=== PATIENT | female | born 1980 | race Caucasian/White ===

== ENCOUNTER 2023-03-03 12:57 | Outpatient (CLI) | payer OTHER, SELFPAY ==
--- NOTE | 2023-03-03 13:20 | CRLHL7_ITS ---
For Patients: As a result of the Century Cures Act, medical imaging exams and procedure reports are released immediately into your electronic medical record. You may view this report before your referring provider. If you have questions, please contact your health care provider. BILATERAL SCREENING MAMMOGRAM WITH COMPUTER-AIDED DETECTION AND TOMOSYNTHESIS TECHNIQUE: CC and MLO views were obtained. These mammographic images have been obtained using full-field digital technique. These mammographic images were interpreted with the benefit of computer-aided detection. Breast tomosynthesis was used in this interpretation. COMPARISON FILM: 01/07/22, 12/02/20, 09/02/19. FINDINGS: The breasts are heterogeneously dense, which may obscure small masses. IMPRESSION: There is no radiographic evidence for malignancy. ASSESSMENT: BI-RADS Category 1: Negative RECOMMENDATION: Routine screening mammogram in 1 year. A lay language report of this examination will be provided to the patient. ZION DOBSON M.D. Diagnostic Radiologist [email or web address] Transcribed: 03/06/2023, 1:[address]/Dictated by: Zion Dobson MD @ 03/06/2023 8:27:00 AM (Electronically Signed)
== END 2023-03-03 12:58 | disposition home or self-care (01) ==
PROVIDERS: Visit Provider Student in an Organized Health Care Education/Training Program
DX: Z12.31 Encounter for screening mammogram for malignant neoplasm of breast (principal); R92.2 Inconclusive mammogram
CPT/HCPCS: 77063; 77067

== ENCOUNTER 2024-02-04 13:49 | Emergency (ER) | payer OTHER, SELFPAY ==
[2024-02-04 13:56] VITALS: BP 145/78; PULSE 78; RESP 18; TEMP 37.2; O2SAT 95; BMI 25.8
--- NOTE | 2024-02-04 14:00 | ED_ITS ---
HPI - General Adult General Time Seen by Provider: 14:00 Date Seen: 02/04/24 Chief complaint: Head Injury/Pain Stated complaint: Fell off horse-hit head with helmet Time Seen by Provider: 02/04/24 13:56 Source: patient, RN notes reviewed and old records reviewed Mode of arrival: ambulatory Limitations: no limitations History of Present Illness HPI narrative: 43-year-old female who presents today after falling off a horse. Patient says she slid off a horse fell and hit her head. Denies loss of consciousness but says she does not remember walking back to the barn, remembers everything else. No nausea or vomiting. No vision changes or photophobia. Denies numbness tingling in the arms or legs. Says that she has some achiness in her back and neck but it does not hurt to move. No chest pain or breathing difficulty. She is unsure for helmet was damaged or not. Related Data Home Medications ?Medication ?Instructions ?Recorded ?Confirmed sertraline 25 mg tablet 25 mg PO DAILY 02/04/24 02/04/24 Allergies Allergy/AdvReac Type Severity Reaction Status Date / Time cefazolin [From [facility]] Allergy Intermediate Hives Verified 02/04/24 13:55 Latex, Natural Rubber Allergy Intermediate Rash Verified 02/04/24 13:55 PFSH PFSH Social History Smoking Status: Never smoker How often do you have a drink containing alcohol: 2-3 times a week AUDIT-C Alcohol total score: 3 Non-prescribed substance use: denies use Exam Narrative: Exam Narrative: General: Well-developed and well-nourished, no acute distress Head: Atraumatic and normocephalic Eyes: Pupils are equal reactive, extraocular motions intact, conjunctiva clear ENT: External nose and ears are normal, posterior pharynx without erythema or exudate Neck: No midline cervical tenderness, full spontaneous range of motion the neck, trachea midline, no adenopathy Heart: Regular rate and rhythm no murmurs or thrills Lungs: Clear to auscultation bilaterally without wheezes or crackles Abdomen: Soft, nontender, nondistended with active bowel sounds Musculoskeletal: Congenital malformation right arm Neurologic: Awake, alert, and oriented x3, no gross focal neurologic deficits, cranial nerves intact as tested Psych: Mood and affect are appropriate Skin: No rashes Const: Vital Signs, click to edit/add: Vital Signs - 24 hr 02/04/24 13:56 Temperature 98.9 F Pulse Rate [Pulse Oximeter] 78 Respiratory Rate 18 Blood Pressure [Le ft Upper Arm] 145/78 H Pulse Oximetry 95 Oxygen Delivery Az thod Room Air Course Course ED Course: Patient seen and examined, presents with head injury. Patient fell off a horse, was wearing a helmet, hit her head, has amnesia for a couple of minutes after the accident. Has no complaints now. Denies neck pain, chest pain, numbness or tingling the arms or legs, nausea, or headache. Does have some general achiness in her back. On exam, no external signs of head injury, no midline cervical tenderness and full spontaneous range of motion the neck. Consider cervical spine CT but not indicated by nexus criteria. CT scan of the head is ordered. Reevaluation(s) Time of Reevaluation #1: 14:44 Reevaluation #1: CT scan of the head independently interpreted by me is negative for acute findings. Patient is stable for discharge. Vital Signs Vital signs: Initial Vital Signs Temperature 98.9 F 02/04/24 13:56 Temperature Source Temporal Artery Scan 02/04/24 13:56 Pulse Rate 78 02/04/24 13:56 Respiratory Rate 18 02/04/24 13:56 Blood Pressure 145/78 H 02/04/24 13:56 Blood Pressure Mean 100 02/04/24 13:56 Pulse Oximetry 95 02/04/24 13:56 Oxygen Delivery Method Room Air 02/04/24 13:56 Vital Signs Temperature 98.9 F 02/04/24 13:56 Pulse Rate 78 02/04/24 13:56 Respiratory Rate 18 02/04/24 13:56 Blood Pressure 145/78 H 02/04/24 13:56 Pulse Oximetry 95 02/04/24 13:56 Oxygen Delivery Method Room Air 02/04/24 13:56 Temperature 98.9 F 02/04/24 13:56 Pulse Rate 78 02/04/24 13:56 Respiratory Rate 18 02/04/24 13:56 Blood Pressure 145/78 H 02/04/24 13:56 Pulse Oximetry 95 02/04/24 13:56 Oxygen Delivery Method Room Air 02/04/24 13:56 Medications Administered Medications: Discontinued Medications Generic Name Dose Route Start Last Admin Trade Name Freq PRN Reason Stop Dose Admin Acetaminophen 1,000 mg 02/04/24 14:06 02/04/24 14:12 Acetaminophen 500 Mg Tablet PO 02/04/24 14:07 1,000 mg ONCE ONE Administration Discharge Plan Discharge Clinical Impression: Concussion without loss of consciousness Patient Disposition: Home, Self-Care Condition: Stable Instructions: Concussion (ED) Additional Instructions: Tylenol and ibuprofen as needed for pain Lots of fluids and rest in the next 24 hours. Avoid alcohol and caffeine. Avoid strenuous activities, normal daytime in work activities are fine Activity Level: Activity as Tolerated Discharge Diet: Regular Prescriptions: No Action sertraline 25 mg tablet 25 mg PO DAILY Follow Up/Referrals: Provider,Not a Local [Primary Care Provider] - Stand Alone Forms: [employer] Info Instructions
--- NOTE | 2024-02-04 14:06 | CRLHL7_ITS ---
For Patients: As a result of the Century Cures Act, medical imaging exams and procedure reports are released immediately into your electronic medical record. You may view this report before your referring provider. If you have questions, please contact your health care provider. INDICATION: Fall. COMPARISON: None available. TECHNIQUE: CT of the head without intravenous contrast. Please note that all CT scans at this facility use dose modulation, iterative reconstruction, and/or weight-based dosing when appropriate to reduce radiation dose to as low as reasonably achievable. FINDINGS: The brain is normal in attenuation with preserved mercado-white matter differentiation. No hydrocephalus. No mass or mass effect. No intracranial hemorrhage. Intact skull base and cranial vault. Visualized orbits are without significant incidental findings. Visualized paranasal sinuses and mastoid air cells are clear. Rightward deviated nasal septum. Right bony nasal septal spur. IMPRESSION: No acute findings. Please note that all CT scans at this facility use dose modulation, iterative reconstruction, and/or weight-based dosing when appropriate to reduce radiation dose to as low as reasonably achievable. Dictated by Lane Card MD @ 02/04/2024 2:53:00 PM (Electronically Signed)
[2024-02-04] MEDS: ACETAMINOPHEN 500 MG TABLET 1000 MG PO (14:12)
--- OUTSIDE RECORDS SUMMARY | 2024-02-04 14:40 | XMS_ITS | Data Portability ---
Author Organization CORY Roldan STORE CLERK CASHIER, [id number] Address [address] [place] [address] Care Team Providers Care Technology Professional Name Role Phone [facility] Primary Care Provid er Assessment Encounter Date Assessment Date Assessment LastModified by Organization Details LastModified Time 10/03/2023 10/03/2023 This service was provided using telemedicine including synchronous audio and/or video approved technology. The patient verbally Consents to telemedicine services, virtual check-ins and evisits. The patient confirms she is at home or private location Telemedicine consultation via Synchronous Audio and Video Call. I spent a total of 10 minutes providing care for this patient including: preparing to see the patient, obtaining a medical history, completing a medically appropriate physical exam, completing documentation of visit information and plans in the EMR, counseling the patient and/or caregiver regarding her diagnosis, treatment options and follow up plans, as well as any necessary communication of subsequent test results to the patient. Assessment and Plan for this visit include the following: [email or web address] Not available 10/03/2023 16:12:02 Plan of Treatment Reminders Order Date Submit Date Provider Last Modified By Organization Details Last Modified Time Details Appointments None recorded. Lab hemoglobin (Hb), fingerstick , blood 2020 021 [email or web address] [id number] [place] , [address] [facility], [address], [place], [address], 10:54:42 unlisted lab - HPV high risk DNA with 16/18 genotyping 2020 021 [facility], [address], [place], [address], 16:32:21 pap, LB 2020 021 [facility], [address], [place], [address], 16:32:22 lipid panel, serum 2021 022 [place] [facility], [address] [place], [address], 10:10:27 unlisted lab - glucose, fasting 2021 022 [place] [facility], [address] [place], [address], 10:10:27 lipid panel, serum 2022 023 [facility], [address] [facility], [address], [place], [address], 3 19:25:47 glucose, blood 2022 023 [facility], [address] [facility], [address], [place], [address], 3 19:25:47 Referral None recorded. Procedures None recorded. Surgeries None recorded. Imaging None recorded. Medication Orders sertraline 50 mg tablet 2020 021 [facility], [address] [place] [address], [address], 11:13:20 sertraline 50 mg tablet 2021 022 [facility]57, [address] [place], [address], 2 13:13:46 sertraline 25 mg tablet 2023 024 [facility]92, [address] [place] [address], [address], 16:39:15 Patient TargetsNo targets recorded. Patient Instructions Encounter Date Encounter Id Patient Instructions Last Modified By Organization Details Last Modified Time 11/23/2020 [id number] - Encouraged breast self-awareness and monthly breast exams. - Recommend mammogram annually. - Encouraged regular exercise. - Calcium, vitamin D, and weight bearing exercise for bone health. - Recommend colonoscopy starting at age 45-50. 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 - Discussed common perimenopausal changes - Counseled on alternative types of control - Pt will return to clinic for fasting labs- lipids, glucose - Return to clinic in 1 year for annual exam [email or web address] Not available 11/23/2020 13:57:50 12/03/2021 [id number] - Encouraged breast self-awareness and recommend yearly mammogram. - Encouraged regular exercise. - Calcium and vitamin D intake discussed. - Discussed appropriate breast cancer screening and mammogram intervals. - Counseled on perimenopause signs/symptoms. - Counseled about the use of HRT; risks, benefits and alternatives of hormone replacement therapy were discussed today. - Discussed mood symptoms. - Counseling on alternative methods of control provided including back up control and condoms. Not available 12/03/2021 13:16:00 12/30/2022 [id number] - Encouraged breast self-awareness and recommend yearly mammogram. - Encouraged regular exercise. - Calcium and vitamin D intake discussed. - Patient will return to clinic for fasting labs. - Discussed appropriate breast cancer screening and mammogram intervals. - Counseled on perimenopause signs/symptoms. - Encouraged weight loss-action plan. - Discussed mood symptoms Not available 12/30/2022 11:41:44 Reason for Referral None Reported. Results Created Date Observation Date Name Description Value Unit Range Abnormal Flag LastModifiedBy Organization Detail LastModifiedTime 11/23/2020 hemog lobin (Hb), finge rstic k, blood fingerstick hemoglobin 12.5 g/dL 12.0-1 5.0 Not Available [id number] [facility] [address] [facility] [address], [place], [address], 11/23/2020 10:52:19 11/24/19 21 11/23/2020 HPV DNA, high- risk HPV high risk type 16 Negati ve for HPV type 16. negati ve for HPV type 16. Not Available [facility] [address] [place], [address], 11/27/2020 16:32:21 11/24/19 21 11/23/2020 HPV DNA, high- risk HPV high risk type 18 Negati ve for HPV type 18. negati ve for HPV type 18. Not Available [facility] [address] [place], [address], 11/27/2020 16:32:21 11/24/19 21 11/23/2020 HPV DNA, high- risk HPV other high risk types Negati ve for other high risk HPV types. negati ve for other high risk HPV types. Not Available [facility] [address] [place], [address], 11/27/2020 16:32:21 11/24/19 21 11/23/2020 pap, LB case report See note Not Available [facility] [address] [place], [address], 11/27/2020 16:32:22 12/04/19 22 12/04/2021 LIPID PANEL W/ CHOL/ HDL RATIO cholesterol, total 216 mg/dL 100-19 9 above high normal Not Available [facility] ([facility]) [address] [facility], [place], [address], 12/04/2021 10:10:27 12/04/19 22 12/04/2021 LIPID PANEL W/ CHOL/ HDL RATIO triglyceride s 57 mg/dL 0-149 Not Available [facility] ([facility]) [address] [facility], [place], [address], 12/04/2021 10:10:27 12/04/19 22 12/04/2021 LIPID PANEL W/ CHOL/ HDL RATIO HDL cholesterol 68 mg/dL >39 Not Available [facility] ([facility]) [address] [place], [address], 12/04/2021 10:10:27 12/04/19 22 12/04/2021 LIPID PANEL W/ CHOL/ HDL RATIO VLDL cholesterol beryl 10 mg/dL 5-40 Not Available [facility] ([facility]) [address] [place], [address], 12/04/2021 10:10:27 12/04/19 22 12/04/2021 LIPID PANEL W/ CHOL/ HDL RATIO LDL chol calc ([facility]) 138 mg/dL 0-99 above high normal Not Available [facility] (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) [address] [place], [address], 12/04/2021 10:10:27 12/04/19 22 12/04/2021 LIPID PANEL W/ CHOL/ HDL RATIO T. chol/HDL ratio 3.2 ratio 0.0-4. 4 Not Available [facility] ([facility]) [address] [place], [address], 12/04/2021 10:10:27 12/04/19 22 12/04/2021 GLUCO SE, FASTI NG glucose, fasting 169 mg/dL 65-99 above high normal Not Available [facility] ([facility]) [address] [place], [address], 12/04/2021 10:10:27 12/22/19 22 12/22/2021 HEMOG LOBIN A1C hemoglobin A1C 5.6 % 4.8-5. 6 Not Available [facility] ([facility]) [address] [facility], [place], [address], 12/22/2021 08:16:04 12/31/19 23 12/30/2022 LIPID PANEL cholesterol 180 mg/dL <200 Not Available [address], [place], [address], 12/30/2022 19:25:47 12/31/19 23 12/30/2022 LIPID PANEL triglyceride s 45 mg/dL <150 Not Available [address], [place], [address], 12/30/2022 19:25:47 12/31/19 23 12/30/2022 LIPID PANEL direct measure HDL 68 mg/dL >=50 Not Available [address], [place], [address], 12/30/2022 19:25:47 12/31/19 23 12/30/2022 LIPID PANEL LDL cholesterol calculated 103 mg/dL <=100 high Not Available [address], [place], [address], 12/30/2022 19:25:47 12/31/19 23 12/30/2022 LIPID PANEL non HDL cholesterol 112 mg/dL <130 Not Available [address], [place], [address], 12/30/2022 19:25:47 12/31/19 23 12/30/2022 GLUCO SE SERUM OR PLASM A glucose 83 mg/dL 70-99 Not Available [address], [place], [address], 12/30/2022 19:25:47 12/31/19 23 12/30/2022 GLUCO SE SERUM OR PLASM A patient fasting > 8hrs? Yes Not Available [address], [place], [address], 12/30/2022 19:25:47 03/06/20 23 03/03/2023 MAMMO , scree yves, tomos ynthe sis, bilat eral No observ ation record ed. [email or web address] Rosmery Health And Safety Manager [facility] [address], [place], [address], 03/06/2023 16:36:20 Result Notes None recorded. Problems Name Status Onset Date Resolution Date Notes Provider Name and Address Organization Details Recorded Time Anxiety [place] [address] [facility],[address], [place], [address], [facility] STORE CLERK CASHIER 11/16/2020 16:56:57 Problem Notes None recorded. Procedures Surgical History Date Name Laterality Status Provider Name and Address Organization Details Recorded Time 023 Date of Last Mammogram completed Dale sales [place] Mikel Phoenix STORE CLERK CASHIER 03/06/2023 16:36:31 021 Date of Last Pap Smear completed Deshaun sales [facility] Premhayder STORE CLERK CASHIER 11/27/2020 17:16:55 operative procedure on knee completed Not Available [facility] 03/16/2020 01:04:59 excision of basal cell carcinoma completed Not Available [facility] 03/16/2020 01:04:59 tooth extraction completed Not Available [facility] 03/16/2020 01:04:59 operative procedure on [place] [address] [facility],[address], [place], [address], [facility] Premier STORE CLERK CASHIER 11/16/2020 17:00:54 colposcopy of cervix completed Not Available [facility] 03/16/2020 01:05:00 arthroscopically aided anterior cruciate ligament reconstruction completed Not Available [facility] 03/16/2020 01:05:00 Imaging Results Imaging Date Name Status LastModified by Organiz ation Details LastModified Time 03/03/2023 MAMMO, screening, tomosynthesis, bilateral completed [email or web address] Alekseycm Health And Safety Manager [facility] [address] [facility] [address], [place], [address], 03/06/2023 16:36:20 Procedure Notes None recorded. Medical Equipment None Reported. Allergies Allergen ID Allergen Name Allergen Category Reaction Reaction Severity Criticality Documentation Date Start Date Code Code System Note Provider Name and Address Organization Details Recorded Time 983116 Latex Exam Gloves medicatio n Not available Not available Not available 03/13/2020 *Note : hives Not Available [facility] 0 16:56:20 598151 cefazolin sodium medicatio n Not available Not available Not available 03/13/202039045 1 RxNorm *Onse t: 7 *Note : 06/14 - hives Not Available [facility] 0 16:56:20 Medications Name Sig Start Date Stop Date Status Note LastModified by Organization Details LastModified Time tretinoin 0.025 % topical cream Apply a pea size amount to face in the evening for brown spots . Apply moisturiz er on top. Start slowly. active Not Available Not Available No t Available sertraline 25 mg tablet TAKE ONE TABLET BY MOUTH ONE TIME DAILY* active Not Available Not Available No t Available sertraline 50 mg tablet Take 0.5 tablets (25 mg) by mouth daily 12/30 completed Not Available Not Available Not Available ID NOW COVID-19 Test Kit TEST FOR COVID-19 PER PROTOCOL 12/03 completed Not Available Not Available Not Available Vitals Date Recorded Body height Body mass index (BMI) Body weight Systolic blood pressure Diastolic blood pressure Provider Name and Address Organization Details Last Updated DateTime 12/03/2021 167.64 cm 25.3 kg/m2 72528.57 g 118 mm[Hg] 74 mm[Hg] Anamika Roldan STORE CLERK CASHIER 2 10:39:56 Date Recorded Body height Body mass index (BMI) Body weight Systolic blood pressure Diastolic blood pressure Provider Name and Address Organization Details Last Updated DateTime 12/30/2022 167.64 cm 25.5 kg/m2 76374.31 g 118 mm[Hg] 76 mm[Hg] Anamika Roldan STORE CLERK CASHIER 3 10:34:33 Date Recorded Body height Body mass index (BMI) Body weight Systolic blood pressure Diastolic blood pressure Provider Name and Address Organization Details Last Updated DateTime 11/23/2020 167.64 cm 26.6 kg/m2 27628.3 g 116 mm[Hg] 72 mm[Hg] Eugenio Navarro (TERMED) CORY Roldan STORE CLERK CASHIER 10:52:16 Social History Question Answer Notes LastModified by WhatsOpen Details LastModified Time Tobacco Smoking Status Never Smoker CORY Soria STORE CLERK CASHIER 12/03/2021 08:01:51 Do You Have An Advance Directive? No Information not available 12/30/2022 What Is Your Level Of Alcohol Consumption? Occasional 1-2dr/week Information not available 12/03/2021 What Is Your Level Of Caffeine Consumption? Moderate 1c/day Information not available 12/30/2022 Which Illicit Or Recreational Drugs Have You Used? 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 Information not available 12/03/2021 Do You Use Any Illicit Or Recreational Drugs? No Information not available 12/03/2021 Sex: Unknown Functional Status Question Answer Note LastModified by Whats[employer] Details LastModified Time What is your exercise level? Moderate Moderate Amount of Exercise (1-3 times weekly) *Note: walk Information not available 03/16/2020 Mental Status None recorded. Family History Relationship Description Onset Age of this Age Resolved Age Notes Father Carcinoma in situ of skin Skin Carcinoma I n Situ: basil cell carcinoma Paternal Grandfather Carcinoma in situ of skin Skin Carcinoma I n Situ: basil cell carcinoma Paternal Grandfather Family history of stroke 70 Stroke Maternal Grandfather Disorder of cardiovascular system 40 Cardiovascular Disease Maternal Grandfather Congestive heart failure 93 Maternal Grandmother Family history of mental disorder Depression Maternal Aunt Malignant tumor of breast 55 Notes:03/16/2020: *Relative: Aunt *Problem: Cancer Breast Medical History Condition Response Psych- Anxiety Disorder Y Ortho-Other Y Ortho-Fractures Y ENT-Other Y Dermatology-Other Y Gynecological History Statement/Question Response History of Abnormal PAP Y History of Recurrent Ovarian Cysts N HPV Test Negative Date of Last Mammogram 03/03/2023 Date of LMP 12/28/2022 History of Cervical Dysplasia N N Date of Last Diabetes Screening 12/22/19 22 5 Sexually Active Y 26 History of Sexually Transmitted Infectio n N Y Current Control Method None Urinary Incontinence Symptoms N Date of Last Pap Smear 11/23/2020 Date of Last Cholesterol Screening 12/03 Obstetrics History GPAL:G 1 P 1 0 0 1 Type Value Multiple Births 0 Full Term 1 Induced 0 Spontaneous 0 Premature 0 Living 1 Ectopics 0 Total 1 Immunizations Vaccine Type Date Status Provider Name and Address Organization Details Recorded Time Tdap 03/21/2012 completed Not Available [facility] 01:06:35 Influenza, split virus, trivalent, preservative 08/16/2011 completed Not Available [facility] 03/16/2020 01:06:35 Influenza, split virus, trivalent, preservative 2013 completed Not Available [facility] 03/16/2020 01:06:36 Influenza, split virus, trivalent, preservative 05/30/2014 completed Not Available [facility] 03/16/2020 01:06:36 Past Encounters Encounter ID Performer Location Encounter Start Date Encounter Closed Date Diagnosis/Indication Diagnosis SNOMED-CT Code [id number] COLIN MCINTYRE MD [id number] [facility] [address] [facility], [address] [place] [address] 11/23/2020 10:42:32 11/23/2020 11:28:28 Gynecologic examination 83626984 Anxiety 20617956 Contracept ion care management 736883175 [id number] ANAND JONES MD [id number] [facility] [address] [facility], [address] [place] [address] 12/03/2021 10:23:11 12/03/2021 13:42:50 Hyperlipidemia screening 683644057 Diabetes m ellitus screening 653113475 Gynecologi c examination 40363463 Anxiety 16725767 [id number] ANAND JONES MD [id number] [facility] [address] [facility], [address] [place] [address] 12/30/2022 10:22:29 12/30/2022 11:53:08 Gynecologic examination 20432729 Hyperlipid emia screening 502456342 Diabetes m ellitus screening 924643448 [id number] JEANNETTE CORDERO, CNM [id number] [facility] [address],[facility] [address] [place] [address] 10/03/2023 15:51:51 10/03/2023 16:38:23 Generalized anxiety disorder 80599455 Health Concerns Section Related Observation LastModified by Organization Detai ls LastModified Time None Recorded Concern Status LastModified by Organization Details LastModified Time None Recorded Advance Directives Directive N: Payers Encounter Date Sequence Insurance Name Policy Number Policy Britton Covered Member ID Britton Member ID Guarantor Name 11/23/2020 1 [place] [id number] Sade Zhou [id number] Sade Zhou 12/03/2021 1 [place] [id number] Sade Zhou [id number] Sade Zhou 12/30/2022 1 [employer]ride [id number] Sade Zhou [id number] Sade Zhou 10/03/2023 1 [employer] - OPEN ACCESS PLUS [id number] Sade Zhou [id number] Sade Zhou Notes Date Note Type Note Provider Name and Address Organization Details Recorded Time 11/23/2020 text/html HPI Notes: Annua l Premenopausal ([facility]) Reported by patient. Patient Relationship To Practice: former patient returning Current Medical History: active medical problems stable; no recent surgeries or hospitalizations Relevant Family History: no family history of breast cancer; no family history of ovarian cancer Menstrual History: Frequency of Menses: monthly; Quantity of Flow: moderate Contraceptive Method: nothing; unsatisfied Sexually Active: Yes: same partner Mammogram: due Pap Smear +/- HPV Cotesting: due Thyroid/Lipid Screening: due Colonoscopy: not applicable Last here 06/2016. Was seeing Dr. Lorenzo who recently retired. Son now 8 yo. 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 Has not yet chosen to get the Covid vaccine. Encouraged to. Menses regular. Not using any BC. Still hoping for to get vasectomy. Continues on sertraline for anxiety and PMS. Forgets to take some days or for up to a week. Does feel better on it and [place] [address] [facility],[address], [place], [address], [facility] [place] [facility] STORE CLERK CASHIER 11/23/2020 13:58:08 12/03/2021 text/html HPI Notes: Annua l Premenopausal (Premier) Reported by patient. Patient Relationship To Practice: established patient Current Medical History: active medical problems stable; no recent surgeries or hospitalizations Relevant Family History: no family history of breast cancer; no family history of ovarian cancer Menstrual History: Frequency of Menses: monthly; Quantity of Flow: moderate Contraceptive Method: nothing; unsatisfied Sexually Active: Yes: same partner Health/Prevention: Exercise: yes; Tobacco Use: no; Safe at home: yes Mammogram: due Pap Smear +/- HPV Cotesting: due Thyroid/Lipid Screening: due Colonoscopy: not applicable Notes: Son 9 yo - doing well. 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 Menses regular. Not using any BC. Still hoping for to get vasectomy. Continues on sertraline for anxiety and PMS. Forgets to take some days or for up to a week. Does feel better on it and [place] [address] [employer] [facility],[address], [place], [address], [place] [facility] STORE CL[facility] 12/03/2021 13:16:19 12/30/2022 text/html HPI Notes: Annua l Premenopausal (Premier) Reported by patient. Patient Relationship To Practice: established patient Current Medical History: active medical problems stable; no recent surgeries or hospitalizations Relevant Family History: no family history of breast cancer; no family history of ovarian cancer Menstrual History: Frequency of Menses: monthly; Quantity of Flow: moderate Contraceptive Method: nothing Sexually Active: Yes: same partner Health/Prevention: Exercise: yes; Tobacco Use: no; Safe at home: yes Mammogram: due Pap Smear +/- HPV Cotesting: up-to-date Thyroid/Lipid Screening: up-to-date Colonoscopy: not applicable Patient has: Primary Care Physician: yes Notes: Son 10 yo - doing well. 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 Not using any BC. Still hoping for to get vasectomy. Has been slowly weaning off of sertraline, Forgets to take some days or for up to a week. [place] [address], [place], [address], [place] [facility] STORE CL[facility] 12/30/2022 11:42:23 10/03/2023 text/html HPI Notes: Sade presents today for a telehealth visit with request for refill on Zoloft. She reports she tried to come off of this medication last year, but has noticed increased anxiety without it. She has since restarted it, taking 25 mg. She desires a refill to be sent for her. Overall mood is stable, and feels Zoloft helps to keep the anxiety well controlled. No current therapy. Denies any major life changes that contribute to mood symptoms/anxiety. Denies suicidal ideation. JEANNETTE CORDERO, STEVE [address] [employer] [facility],[address], [place], [address], [place] [facility] STORE CLERK CASH[facility] 10/03/2023 16:12:50 OBGyn Episode Ob Episode Information Episode Created Date Number of Fetuses Patient Bloodtype Patient rh Status Prepregnancy Weight lbs Domestic Partner Domestic Partner Phone Father Name Equipment Validation Specialist Status 11/17/19 21 1 CLOSED Fetus Data First Name Last Name Admitted to NICU Weight (g) Sex Living Outcome Pediatric Complications Fetus ID Race Codes Race Delivery Type 3118.44 5 M Full Term [id number] Vaginal Vacuum Assisted Maldonado Calculation Initial Maldonado Date Initial Exam Date Initial Exam Provider Initial Ultrasound Date Last Menstrual Period Date Ultra Sound Weeks Gestation 0 Eighteen To Twenty Week Maldonado Update Ultra Sound Date Fundal Height At Umbil Quickening Date Ultra Sound Latest Weeks Gestation Final Maldonado Confirmed By Final Maldonado Confirmed Date Final Maldonado Date Ultra Sound Latest Days Gestation 0 0 Menstrual History Last Menstrual Date Menses Monthly On Bcp Conception Prior Menses Frequency Hcg Plus Date Menarche Onset Age Delivery Information Delivery Date Delivery Type Labor Anesthesia Weeks Gestation Incision Type Labor Labor Length Hrs Delivered By Post Complications Tubal Sterilization Discharge Date Comments [address] Reyna Discharge Information Feeding Method Contraceptive Method Maternal HG B and HCT Levels
--- OUTSIDE RECORDS SUMMARY | 2024-02-04 14:40 | XMS_ITS | Clinical Summary ---
Author Organization [facility] Address [place], [place] [address] Care Team Providers Care Nylon Winder Name Role Phone Bree Zamora MD Primary Care Provider [phone] Allergies Active Allergy Reactions Criticality Noted Date Comments Cefazolin 01/21/2009 Latex 03/26/2012 Medications Medication Sig Dispensed Refills Start Date End Date Status ZOLOFT 50 MG TAB take 1 tablet (50 mg) by oral route once daily Active CLOMID 50 MG TAB take 2 tablets (100mg) by oral route days 5-9 of cycle Active ferrous sulfate, 45 mg elemental, 142 mg (45 mg iron) extended release tablet Take 142 mg by mouth once daily. 03/26/2012 Active docusate (COLACE) 100 mg capsule Take 100 mg by mouth 2 times daily if needed. 03/26/2012 Active DOCOSAHEXANOIC ACID ( DHA ORAL) Take 1 tablet by mouth daily. 03/26/2012 Active Active Problems Problem Noted Date Diagnosed Date Routine general medical exam ination at a health care facility 01/21/2009 Overview: Last pap 05/01/08 NIL Depression 01/21/2009 Infertility 01/21/2009 Overview: Clomid and Novarel Social History Tobacco Use Types Packs/Day Years Used Date Smoking Tobacco: Never Assessed Sex and Gender Information Value Date Recorded Sex Assigned at Not on file Gender Identity Not on file Sexual Orientation Not on file Obstetrics History Para Term AB IAB SAB Ectopic Multiple Livin g Live Births 0 0 0 0 0 0 0 0 0 0 Last Filed Vital Signs Vital Sign Reading Time Taken Comments Blood Pressure 110/70 03/26/2012 2:00 AM CDT Pulse 76 03/26/2012 2:00 AM CDT Temperature 36.3 ??C (97.4 ??F) 03/26/2012 2:00 AM CD T Respiratory Rate 20 03/26/2012 2:00 AM CDT Oxygen Saturation - - Inhaled Oxygen Concentration - - Weight - - Height - - Body Mass Index - - Plan of Treatment Health Maintenance Due Date Last Done Comments Tdap 1989 Depression screening for age 12+ 1990 HIV for age 15-65 1993 BMI (ht and wt on same day) for age 18+ 1996 Hepatitis C screening for ag e 18-79 1996 Tetanus booster 1998 Pap test for age 21-65 1999 COVID-19 vaccine series (2022- season) 2023 Colonoscopy through age 75 2023 Lipids for age 45-75 2023 Mammogram for age 45-75 2023 Influenza for age 9-49 04/07/2024 Pneumococcal series for age 6-64 Aged Out No longer eligible based on patient's age to complete this topic Care Teams Nylon Winder Relationship Specialty Start Date End Date Bree Zamora MD PCP - General 08/08/08
== END 2024-02-04 14:58 | disposition home or self-care (01) ==
PROVIDERS: Emergency Provider Family Medicine
DX: S06.0X0A Concussion without loss of consciousness, initial encounter (principal); V80.010A Animal-rider injured by fall from or being thrown from horse in noncollision accident, initial encounter
CPT/HCPCS: 70450; 99284; A9270

== ENCOUNTER 2024-06-18 15:39 | Outpatient (CLI) | payer OTHER, SELFPAY ==
--- OUTSIDE RECORDS SUMMARY | 2024-06-18 15:42 | XMS_ITS | Referral Summary ---
Author Organization [facility] Address [address] [place] [address] Care Team Providers Care Forgeman Helper Name Role Phone Jenny Monroy MD Primary Care Provider [phone] Jenny Monroy MD Unavailable [phone] Encounters Date Type Department Care Team Description 05/21/2024 Telephone [facility] [address] [address] Scan, Provider Forms (Medical records request to [facility]mer[facility] STATON. Request faxed/scan 05/21/24) 05/20/2024 Travel 05/20/2024 8:00 AM CDT Office Visit [facility] [address] [address] Jenny Monroy MD Encounter for routine history and physical exam in female patient (Primary Dx); ALONSO (generalized anxiety disorder); Encounter for screening mammogram for breast cancer; Screening for colon cancer; Need for hepatitis C screening test; Intrinsic asthma from Last 3 Months Allergies Active Allergy Reactions Criticality Noted Date Comments Cephalosporins Nausea and Vomiting,Rash Low 001 Ancef-got rash around IV site Latex Shortness Of Breath,Rash High 05/25/2001 Medications sertraline (ZOLOFT) 25 MG tabletIndicati ons:ALONSO (generalized anxiety disorder) Take 1 tablet (25 mg) by mouth daily. 90 tablet 1 4 Active sertraline (ZOLOFT) 50 MG tabletIndicati ons:ALONSO (generalized anxiety disorder),PMS (premenstrual syndrome) Take 0.5 tablets (25 mg) by mouth daily 45 tablet 3 0 05/20/20 24 Discontinued( Therapy completed (No AVS)) sertraline (ZOLOFT) 25 MG tablet Take 1 tablet by mouth daily at 2 pm. 4 05/20/20 24 Discontinued( Reorder (No AVS)) Active Problems Problem Noted Date Diagnosed Date ALONSO (generalized anxiety disorder) 12/20/2019 Postconcussion syndrome 08/16/2017 Overview (08/16/2017): 08/14/2017, headache, nausea. Intrinsic asthma 01/27/2003 Overview (05/07/2015): Latex sensitivity Problem list name updated by automated process. Provider to review Allergic rhinitis 01/27/2003 Overview (05/07/2015): Problem list name updated by automated process. 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 Provider to review Cleft lip Overview (05/07/2015): Problem list name updated by automated process. Provider to review Old disruption of anterior cruciate ligament Resolved Problems Problem Noted Date Diagnosed Date Resolved Date Health Mcfp 08/09/2017 01/22/2024 Cervical pain 02/24/2014 04/14/2014 Normal delivery 03/20/2012 08/09/2017 Labor and delivery, indication for care 03/19/2012 08/09/2017 Sprain of neck 03/17/2010 02/24/2014 Anxiety state 11/16/2006 05/20/2024 Overview (05/07/2015): Problem list name updated by automated process. Provider to review Immunizations Name Administration Dates Next Due HepB 01/16/2002 Influenza (IIV3) PF 07/14/2003,06/15/2001 Influenza Vaccine >6 months,quad, PF 05/19/2018, 07/02/2017 Influenza Vaccine, 6+MO IM ( QUADRIVALENT W/PRESERVATIVES) 06/03/2019,08/06/2016 Mantoux Tuberculin Skin Test 03/04/2003,04/24/20 02,12/21/2001 TDAP (Adacel,Boostrix) 05/20/2024 TDAP Vaccine (Adacel) 03/21/2012 Social History Tobacco Use Types Packs/Day Years Used Date Smoking Tobacco: Never Passive Smoke Exposure: Never Smokeless Tobacco: Never Tobacco Cessation:Counseling Given: Not Answered Alcohol Use Standard Drinks/Week Comments Yes 2 (1 standard drink = 0.6 oz pur e alcohol) weekends Overall Financial Resource Strain (CARDIA) Answe r Date Recorded How hard is it for you to pa y for the very basics like food, housing, medical care, and heating? Not hard at all 12/20/2019 PHQ-2 Answer Date Recorded PHQ-2 Score 0 05/20/2024 Hunger Vital Sign Answer Date Recorded Within the past 12 months, y ou worried that your food would run out before you got the money to buy more. Never true 12/20/19 20 Within the past 12 months, t he food you bought just didn't last and you didn't have money to get more. Never true 12/20/2019 PRAPARE - Transportation Answer Date Re corded In the past 12 months, has l ack of transportation kept you from medical appointments or from getting medications? No 12/05 In the past 12 months, has l ack of transportation kept you from meetings, work, or from getting things needed for daily living? 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 Gender Identity Not on file Sexual Orientation Not on file Last Filed Vital Signs Vital Sign Reading Time Taken Comments Blood Pressure 108/72 05/20/2024 8:05 AM CDT Pulse 66 05/20/2024 8:05 AM CDT Temperature 36.7 ??C (98 ??F) 05/20/2024 8:05 AM CDT Respiratory Rate 18 12/20/2019 1:28 PM CDT Oxygen Saturation 99% 05/20/2024 8:05 AM CDT Inhaled Oxygen Concentration - - Weight 73.9 kg (163 lb) 05/20/2024 8:05 AM CDT Height 169.5 cm (5' 6.75) 05/20/2024 8:05 AM CD T Body Mass Index 25.72 05/20/2024 8:05 AM CDT Plan of Treatment Not on file Procedures Procedure Name Priority Date/Time Associated Diagnosis Comments ASTHMA ACTION PLAN Routine 05/20/2024 12 :40 PM CDT Intrinsic asthma HEP C ANTISE Routine 05/20/2024 9:51 AM CDT Need for hepatitis C screening test DC COLLECTION VENOUS BLOOD VENIPUNCTURE Routine 05/20/2024 8:27 AM CDT Encounter for routine history and physical exam in female patient LIPID PANEL (BFP) Routine 05/20/2024 Encounter for routine history and physical exam in female patient BASIC METABOLIC PANEL (BFP) Routine 05/20/2024 Encounter for routine history and physical exam in female patient MAMMOGRAM - HIM SCAN Routine 03/03/2023 PAP SMEAR - HIM PATIENT REPORTED Routine 11/27/2020 HIV 1 AND 2 ANTIBODY ([facility]) Routine 08/16/2011 from Last 3 Months or Most Recently Relevant to Health Maintenance Results * HEPATITIS C ANTIBODY ([facility]) (05/20/2024 9:51 AM CDT) HCV Antibody NON-REACTI VE NON-REACT TAZ [facility] Comment: HCV antibody was non-reactive. There is no laboratory evidence of HCV infection. In most cases, no further action is required. However, if recent HCV exposure is suspected, a test for HCV RNA (test code 02797) is suggested. For additional information please refer to http://education.Courseload/faq/HLF69o3 (This link is being provided for informational/ educational purposes only.) Blood 05/20/2024 9:51 AM CDT 05/21/2024 2:49 AM CDT Narrative Resulting Agency Comment Performing Organization Information: ? CB ? [facility] ? [address] [place] [address] ? Bautista Guerrero Jenny Monroy MD LAB - NON-BEAKER BLOOD LABS Final Result [facility] [address] [place], [place] [address] [phone] * (ABNORMAL) Lipid Panel ([facility]) (05/20/2024) Cholesterol 212(A) 0 - 199 mg/dL [facility] Triglycerides 66 0 - 149 mg/dL [facility] HDL Cholesterol 75 40 - 150 mg/dL [facility] LDL-C 124 0 - 129 mg/dL [facility] Cholesterol/HDL Ratio 3 0 - 5 [facility] Blood 05/20/2024 Jenny Monroy MD LAB - NON-BEAKER BLOOD LABS Final Result [facility] [address] [place] [phone] * Basic Metabolic Panel ([facility]) (05/20/2024) Carbon Dioxide 24.9 20 - 32 mmol/L [facility] Creatinine 0.89 0.60 - 1.30 mg/dL [facility] Glucose 93 60 - 99 mg/dL [facility] Sodium 136.2 135 - 146 mmol/L [facility] Potassium 4.21 3.5 - 5.3 mmol/L [facility] Chloride 106.5 98 - 110 mmol/L [facility] Urea Nitrogen 16 7 - 25 mg/dL [facility] Calcium 8.9 8.6 - 10.3 mg/dL [facility] BUN/Creatinine Ratio 18 6 - 32 [facility] Blood 05/20/2024 Jenny Monroy MD LAB - NON-BEAKER BLOOD LABS Final Result Performing Organization Address City/[facility] Co de Phone Number [facility] [address] [facility] [address] [place] [address], [facility] * Mammogram - HIM Scan (03/03/2023) Anatomical Region Laterality Modality Other Patient Reported IMG MAMMOGRAPHY ORDERABLES Geovanna l Result * PAP Smear - HIM Patient Reported (11/27/2020) PAP Smear - HIM Patient Reported Negative 11/27/2020 us Patient Reported LABORATORY Final Result * HIV 1 and 2 Antibody (08/16/2011) HIV-1 & HIV-2 Antibody [facility] HIV 1&2 Antibody Negative [facility] Blood specimen (specimen) us Patient Reported LAB - BLOOD ORDERABLES Final Re sult Performing Organization Address City/[facility]/ZIP Co de Phone Number [facility] from Last 3 Months or Most Recently Relevant to Health Maintenance Insurance [employer] Care Teams Forgeman Helper Relationship Specialty Start Date End Date Jenny Monroy MD [address] [place] [address] PCP - General Family Medicine 04/19/24 Jenny Monroy MD [address] [place] [address] Assigned PCP 05/29/24
--- OUTSIDE RECORDS SUMMARY | 2024-06-18 15:42 | XMS_ITS | Encounter Summary ---
Author Organization [facility] Address [address] [place] [address]. 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
--- OUTSIDE RECORDS SUMMARY | 2024-06-18 15:42 | XMS_ITS | Clinical Summary ---
Author Organization [facility] Address [address] [place] [address]. [place] [address] Care Team Providers Care Supervisor Intermediates Name Role Phone Jenny Monroy MD Primary Care Provider [phone] Jenny Monroy MD Unavailable [phone] Allergies Active Allergy Reactions Criticality Noted Date [...] Noted Date Diagnosed Date Resolved Date Health Detention 08/09/2017 01/22/2024 Cervical pain 02/24/2014 04/14/2014 Normal delivery 03/20/2012 08/09/2017 Labor and delivery, indication for care 03/19/2012 08/09/2017 Sprain of neck 03/17/2010 02/24/2014 Anxiety state 11/16/2006 05/20/2024 Overview (05/07/2015): Problem list name updated by automated process. Provider to review Encounters Date Type Department Care Team Description 05/21/2024 Telephone [facility] [address] [place] [phone] Scan, Provider Forms (Medical records request to Rosmery STATON. Request faxed/scan 05/21/24) 05/20/2024 8:00 AM CDT Office Visit [facility] [address] [place] [phone] Jenny Monroy MD Encounter for routine history and physical exam in female patient (Primary Dx); ALONSO (generalized anxiety disorder); Encounter for screening mammogram for breast cancer; Screening for colon cancer; Need for hepatitis C screening test; Intrinsic asthma 05/20/2024 Travel from Last 3 Months Immunizations Name Administration Dates Next Due HepB 01/16/2002 Influenza (IIV3) PF 07/14/2003,06/15/2001 Influenza Vaccine >6 months,quad, PF 05/19/2018, 07/02/2017 Influenza Vaccine, 6+MO IM ( QUADRIVALENT W/PRESERVATIVES) 06/03/2019,08/06/2016 Mantoux Tuberculin Skin Test 03/04/2003,04/24/20 02,12/21/2001 TDAP (Adacel,Boostrix) 05/20/2024 TDAP Vaccine (Adacel) 03/21/2012 Family History Medical History Relation Comments Respiratory Brother asthma Cancer Father basal cell carci noma Heart Disease Maternal Grandfather congestive heart failure Cancer Paternal Grandfather basal cell carcinoma Alcohol/Drug No family hx of Allergies No family hx of Anesthesia Reaction No family hx of Arthritis No family hx of Blood Disease No family hx of Cerebrovascular Disease No family hx of Depression No family hx of Diabetes No family hx of Gastrointestinal Disease No family hx of Genetic Disorder No family hx of Genitourinary Problems No family hx of Hypertension No family hx of Lipids No family hx of Neurologic Disorder No family hx of Osteoporosis No family hx of Psychotic Disorder No family hx of Thyroid Disease No family hx of Relation Status Comments Brother Father Maternal Grandfather Paternal Grandfather Social History Tobacco Use Types Packs/Day Years [...] on file 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 Gender Identity Not on file Sexual Orientation [...] 05/20/2024 8:05 AM CDT Plan of Treatment Health Maintenance Due Date Last Done Comments ANNUAL REVIEW OF HM ORDERS 1978 ASTHMA CONTROL TEST [address] CT COLONOGRAPHY 1978 FIT 1978 FLEX SIG 1978 sDNA (Cologuard) 1978 COLONOSCOPY 1988 COLORECTAL CANCER SCREENING 1988 INFLUENZA VACCINE (#1) 2025 9, 05/19/2018, 07/02/2017, Additional history exists Postponed from 04/07/2024 (Patient Declined) MAMMO SCREENING 03/03/2025 03/03/2023, 08/08, 09/02/2019, Additional history exists ASTHMA ACTION PLAN 05/20/2025 05/20/2024, 1 , 05/20/2024, Additional history exists COVID-19 Vaccine ( season) 2025 Postponed from 04/07/2024 (Patient Declined) YEARLY PREVENTIVE VISIT 05/20/2025 05/20/20, 12/30/2022, 12/03/2021, Additional history exists PAP 11/27/2025 11/27/2020, 11/23/2020 HEPATITIS B IMMUNIZATION (2 of 3 - 19+ 3-dose series) 05/20/2026 01/16/2002 Postponed from 02/13/2002 (Other) Pneumococcal Vaccine: Pediatrics (0 to 5 Years) and At-Risk Patients (6 to 64 Years) (1 of 2 - PCV) 05/20/2026 Postponed from 1984 (Other) GLUCOSE 05/20/2027 05/20/2024, 12/30/2022 ADVANCE CARE PLANNING 05/20/2029 05/20/2024 LIPID 05/20/2029 05/20/2024, 12/06, 12/22/2001 DTAP/TDAP/TD IMMUNIZATION (3 - Td or Tdap) 05/20/2034 05/20/2024, 03/21/2012 RSV VACCINE (1 - 1-dose 75+ series) 2053 HIV SCREENING Completed 08/16/2011 HEPATITIS C SCREENING Completed 05/20/2024 PHQ-2 (once per calendar year) Completed 05/20/2024, 05/20/2024, 12/20/2019, Additional history exists HPV IMMUNIZATION Aged Out No longer e ligible based on patient's age to complete this topic MENINGITIS IMMUNIZATION Aged Out No l onger eligible based on patient's age to complete this topic RSV MONOCLONAL ANTIBODY Aged Out No l onger eligible based on patient's age to complete this topic Procedures Procedure Name Priority Date/Time Associated Diagnosis Comments ASTHMA ACTION PLAN Routine 05/20/2024 12 :40 PM CDT Intrinsic asthma HEP C ANTISE Routine 05/20/2024 9:51 AM CDT Need for hepatitis C screening test RI COLLECTION VENOUS BLOOD VENIPUNCTURE Routine 05/20/2024 8:27 [...] Routine 11/27/2020 HIV 1 AND 2 ANTIBODY ([facility]) Routine 08/16/2011 from Last 3 Months or Most Recently Relevant to Health Maintenance Results * HEPATITIS C ANTIBODY ([facility]) (05/20/2024 9:51 AM CDT) Pathologist [facility] HCV Antibody NON-REACTI VE NON-REACT TAZ [facility] Comment: HCV antibody was non-reactive. There is no laboratory evidence of HCV infection. In most cases, no further action is required. However, if recent HCV exposure is suspected, a test for HCV RNA (test code 83246) is suggested. For additional information please refer to http://education.[employer]/faq/FIZ79g2 (This link is being provided for informational/ educational purposes only.) Blood 05/20/2024 9:51 AM CDT 05/21/2024 2:49 AM CDT Narrative Resulting Agency Comment Performing Organization Information: ? CB ? [facility] ? [address] [place] [address] ? Bautista Guerrero Jenyn Monroy MD LAB - NON-Comply ServeAKER BLOOD LABS Final Result Performing Organization Address City/[facility]/ZIP Co de Phone Number [facility] [address] [place] [address], [facility] [phone] * (ABNORMAL) Lipid Panel ([facility]) (05/20/2024) Pathologist [facility] Cholesterol 212(A) 0 - 199 mg/dL [facility] Triglycerides 66 0 - 149 mg/dL [facility] HDL Cholesterol 75 40 - 150 mg/dL [facility] LDL-C 124 0 - 129 mg/dL [facility] Cholesterol/HDL Ratio 3 0 - 5 [facility] Blood 05/20/2024 Jenny Monroy MD LAB - NON-BEAKER BLOOD LABS Final Result [facility] [address] [place] [address] * Basic Metabolic Panel ([facility]FP) (05/20/2024) Carbon [...] BLOOD LABS Final Result Performing Organization Address [facility] de Phone Number [facility] [address] [place] [phone] * Mammogram - HIM Scan (03/03/2023) Anatomical Region Laterality Modality Other Patient Reported IMG MAMMOGRAPHY ORDERABLES Geovanna l Result * PAP Smear - HIM Patient Reported (11/27/2020) PAP Smear - HIM Patient Reported Negative 11/27/2020 Patient Reported LABORATORY Final Result * HIV 1 and 2 Antibody (08/16/2011) HIV-1 & HIV-2 Antibody [facility] HIV 1&2 Antibody Negative [facility] Blood specimen (specimen) Patient Reported LAB - BLOOD ORDERABLES Final Re sult [facility] from Last 3 Months or Most Recently Relevant to Health Maintenance Insurance [employer] Care Teams Supervisor Intermediates Relationship Specialty Start Date End Date Jenny Monroy MD [address] [place] [address] PCP - General Family Medicine 04/19/24 Jenny Monroy MD [address] [place] [address] Assigned PCP 05/29/24
--- OUTSIDE RECORDS SUMMARY | 2024-06-18 15:42 | XMS_ITS | Encounter Summary ---
Author Organization [facility] Address [address] [place] [address]. [place] [address] Care Team Providers Care Marine Fisheries Technician Name Role Phone Jenny Monroy MD Primary Care Provider [phone] Reason for Visit * Reason Onset Date Comments Forms 05/21/2024 Medical records request to Rosmery STATON. Request faxed/scan 05/21/24 Encounter Details Date Type Department Care Team (Late st Contact Info) Description 05/21/2024 Telephone [facility] [address] [place] [address] [address] [place] [address] Scan, Provider Forms (Medical records request to Rosmery STATON. 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
--- OUTSIDE RECORDS SUMMARY | 2024-06-18 15:42 | XMS_ITS | Clinical Summary ---
Author Organization [facility] Address [place], [place] [address] Care Team Providers Care Ship Superintendent Name Role Phone Bree Zamora MD Primary Care Provider [phone] Allergies Active Allergy Reactions Criticality Noted Date [...] ination at a health care facility 01/21/2009 Overview (01/21/2009): Last pap 05/01/08 NIL Depression 01/21/2009 Infertility 01/21/2009 Overview (01/21/2009): Clomid and Novarel Social History Tobacco Use [...] 1998 Pap test for age 21-65 1999 Colonoscopy through age 75 2023 Lipids for age 45-75 2023 Mammogram for age 45-75 2023 COVID-19 vaccine series ( - 2023-25 season) 2024 Influenza for age 9-49 04/07/2024 Pneumococcal series for age 6-64 Aged Out No longer eligible based on patient's age to complete this topic Care Teams Ship Superintendent Relationship Specialty Start Date End Date Bree Zamora MD PCP - General 08/08/08
--- OUTSIDE RECORDS SUMMARY | 2024-06-18 15:42 | XMS_ITS | Encounter Summary ---
Author Organization [facility] Address [address] [place] [address] Care Team Providers Care Can Top Setter Name Role Phone Jenny Monroy MD Primary Care Provider [phone] Reason for Referral * Diagnostic Imaging Other (Routine: Next available opening) - Pending Review Specialty Diagnoses / Procedures Referred By Vira zaman Referred To Contact Diagnoses Encounter for screening mammogram for breast cancer Jenny Monroy MD [address] [place] [address] Phone: tel: fax: [facility] [address] Phone: tel: Referral ID Status Reason Start Date Expiration Date V isits Requested Visits Authorized [id number] Pending Review 05/20/2024 05/20/2025 1 1 Scheduling Instructions Pt has this scheduled Question Answer Preferred Location: [facility] O[facility] Comments Prior authorization is required for MRI/MRA, CT, Dexa Scans and Worker's Compensation cases. * Diagnostic Imaging Mammo (Routine) - Pending Review Specialty Diagnoses / Procedures Referred By Vira zaman Referred To Contact Diagnoses Encounter for screening mammogram for breast cancer Procedures MA Screening Bilateral w/ Jasvir Jenny Monroy MD [address] [place] [address] Phone: tel: fax: [facility] [place] [address] [facility] [address] [place] [address] Phone: tel: Referral ID Status Reason Start Date Expiration Date V isits Requested Visits Authorized [id number] Pending Review 05/20/2024 05/20/2025 1 1 * Consultation (Routine: Next available opening) - Pending Review Specialty Diagnoses / Procedures Referred By Contjustin t Referred To Contact Diagnoses Screening for colon cancer Jenny Monroy MD [address] [place] [address] Phone: tel: fax: [facility] [address] [address] Phone: tel: Referral ID Status Reason Start Date Expiration Date V isits Requested Visits Authorized [id number] Pending Review 05/20/2024 05/20/2025 1 1 Question Answer Service: Screening Sedation Concerns: No medical conditions affecting sedation Sedation Type: Moderate/Conscious Sedation Preferred Location: External Affiliated Partners External Affiliated Partner Location: [facility]: [facility] - Various Locations [facility]: [facility]: N: [facility] Additional Instructions: Please fax this to [facility] at [phone]. Scheduling Instructions: Please call to schedule your appointment Class External referral [5] Comments Please be aware that coverage of these services is subject to the terms and limitations of your health insurance plan. Call member services at your health plan with any benefit or coverage questions. Please call to schedule your appointment Reason for Visit * Reason Comments New Patient Re-establish, pap's done at [facility] Physical Fasting today, no co ncerns Recheck Medication Refill sertraline Encounter Details Date Type Department Care Team (Late st Contact Info) Description 05/20/2024 8:00 AM CDT Office Visit [facility] [address] [place] [address] [address] [place] [phone] Jenny Monroy MD [address] [place] [address] Encounter for routine history and physical exam in female patient (Primary Dx); ALONSO (generalized anxiety disorder); Encounter for screening mammogram for breast cancer; Screening for colon cancer; Need for hepatitis C screening test; Intrinsic asthma Social History Tobacco Use Types Packs/Day Years [...] on file 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 Gender Identity Not on file Sexual Orientation Not on file documented as of this encounter Last Filed Vital Signs Vital Sign Reading Time Taken Comments Blood Pressure 108/72 05/20/2024 8:05 AM CDT Pulse 66 05/20/2024 8:05 AM CDT Temperature 36.7 ??C (98 ??F) 05/20/2024 8:05 AM CDT Respiratory Rate - - Oxygen Saturation 99% 05/20/2024 8:05 AM CDT Inhaled Oxygen Concentration - - Weight 73.9 kg (163 lb) 05/20/2024 8:05 AM CDT Height 169.5 cm (5' 6.75) 05/20/2024 8:05 AM CD T Body Mass Index 25.72 05/20/2024 8:05 AM CDT documented in this encounter Progress Notes * Jenny Monroy MD - 05/20/2024 8:00 AM CDT Images from the original note were not included. Preventive Care Visit [facility] Jenny Monroy MD, Family Medicine May 20, 2024 SUBJECTIVE: Sade is a 44 year old, presenting for the following: New Patient (Re-establish, pap's done at [facility]), Physical (Fasting today, no concerns), and Recheck Medication (Refill sertraline) HPI Here new patient, here for a physical. Paps done through gynecology. Wants sertraline refilled. Has been on this for at least 20 years, would like to continue the same dose, due for refills. Notices when she stops it that she needs it, is more for anxiety, I am a worrier. 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 She was previously seeing gynecology, had a pap last check. Pap is up to date. May want to change management here to start coming here. Have you ever done Advance Care Planning? (For example, a Health Directive, POLST, or a discussion with a medical provider or your loved ones about your wishes): No, advance care planning informationgiven to patient to review. Advanced care planning was discussed at today's visit. Social History Tobacco Use Smoking status: Never Passive exposure: Never Smokeless tobacco: Never Substance Use Topics Alcohol use: Yes Alcohol/week: 2.0 standard drinks of alcohol Types: 2 Standard drinks or equivalent per week Comment: weekends No data to display No concerns Reviewed orders with patient. Reviewed health maintenance and updated orders accordingly - Yes BP Readings from Last 3 Encounters: 05/20/24 108/72 01/30/19 108/62 11/07/18 110/60 Wt Readings from Last 3 Encounters: 05/20/24 73.9 kg (163 lb) 01/30/19 71.7 kg (158 lb) 11/07/18 72.5 kg (159 lb 12.8 oz) Patient Active Problem List Diagnosis Cleft lip Old disruption of anterior cruciate ligament Intrinsic asthma Allergic rhinitis Congenital anomaly of upper limb Postconcussion syndrome ALONSO (generalized anxiety disorder) Past Surgical History: Procedure Laterality Date DRAIN ABSCESS PAROTID,SIMPLE 1994 PAROTID GLAND REMOVAL DUE TO BENIGN TUMOR [facility] OSTEOPLASTY HUMERUS 1978 [facility] REPAIR CRUCIATE LIGAMENT,KNEE 1995 SKIING ACCIDENT [facility] BENIGNO NOSE/CLEFT LIP/TIP 1977, 1982, 1995, 1998 CLEFT LIP REPAIR ONLY, BONE GRAFT FROM PELVIS TO MAXILLA 1998 Social History Tobacco Use Smoking status: Never Passive exposure: Never Smokeless tobacco: Never Substance Use Topics Alcohol use: Yes Alcohol/week: 2.0 standard drinks of alcohol Types: 2 Standard drinks or equivalent per week Comment: weekends Family History Problem Relation Age of Onset Cancer Father basal cell carcinoma Cancer Paternal Grandfather basal cell carcinoma Heart Disease Maternal Grandfather congestive heart failure Respiratory Brother asthma Alcohol/Drug No family hx of Allergies No family hx of Anesthesia Reaction No family hx of Arthritis No family hx of Blood Disease No family hx of Depression No family hx of Diabetes No family hx of Genetic Disorder No family hx of Gastrointestinal Disease No family hx of Genitourinary Problems No family hx of Hypertension No family hx of Lipids No family hx of Neurologic Disorder No family hx of Osteoporosis No family hx of Psychotic Disorder No family hx of Cerebrovascular Disease No family hx of Thyroid Disease No family hx of Current Outpatient Medications Medication Sig Dispense Refill sertraline (ZOLOFT) 25 MG tablet Take 1 tablet (25 mg) by mouth daily. 90 tablet 1 Breast Cancer Screening: [facility]-7: No data to display Mammogram referral done. Pertinent mammograms are reviewed under the imaging tab. History of abnormal Pap smear: pap and breast exam with gynecology. 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 Provider to review ALONSO (generalized anxiety disorder) 12/20/2019 Postconcussion syndrome 08/16/2017 08/14/2017, headache, nausea. Past Surgical History: Procedure Laterality Date DRAIN ABSCESS PAROTID,SIMPLE 1995 PAROTID GLAND REMOVAL DUE TO BENIGN TUMOR [facility] OSTEOPLASTY HUMERUS 1978 [facility] REPAIR CRUCIATE LIGAMENT,KNEE 1995 SKIING ACCIDENT [facility] BENIGNO NOSE/CLEFT LIP/TIP 1977, 1982, 1995, 1998 CLEFT LIP REPAIR ONLY, BONE GRAFT FROM PELVIS TO MAXILLA 1998 Review of Systems Review of Systems Constitutional, HEENT, cardiovascular, pulmonary, gi and gu systems are negative, except as otherwise noted. OBJECTIVE: BP 108/72 (BP Location: Right arm, Patient Position: Sitting, Cuff Size: Adult Large) Pulse 66 Temp 98 ??F (36.7 ??C) (Temporal) Ht 1.695 m (5' 6.75) Wt 73.9 kg (163 lb) LMP 05/08/2024 SpO2 99% BMI 25.72 kg/m?? Estimated body mass index is 25.72 kg/m?? as calculated from the following: Height as of this encounter: 1.695 m (5' 6.75). Weight as of this encounter: 73.9 kg (163 lb). Physical Exam GENERAL: alert and no distress EYES: Eyes grossly normal to inspection, PERRL and conjunctivae and sclerae normal HENT: ear canals and TM's normal, nose and mouth without ulcers or lesions NECK: no adenopathy, no asymmetry, masses, or scars RESP: lungs clear to auscultation - no rales, rhonchi or wheezes BREAST: normal without masses, tenderness or nipple discharge and no palpable axillary masses or adenopathy CV: regular rate and rhythm, normal S1 S2, no S3 or S4, no murmur, click or rub, no peripheral edema ABDOMEN: soft, nontender, no hepatosplenomegaly, no masses and bowel sounds normal MS: no gross musculoskeletal defects noted, no edema SKIN: no suspicious lesions or rashes NEURO: Normal strength and tone, mentation intact and speech normal PSYCH: mentation appears normal, affect normal/bright Pelvic exam declined Diagnostic Test Results: Labs reviewed in [facility] Results for orders placed or performed in visit on 05/20/24 Basic Metabolic Panel (BFP) Status: None Result Value Ref Range Carbon Dioxide 24.9 20 - 32 mmol/L Creatinine 0.89 0.60 - 1.30 mg/dL Glucose 93 60 - 99 mg/dL Sodium 136.2 135 - 146 mmol/L Potassium 4.21 3.5 - 5.3 mmol/L Chloride 106.5 98 - 110 mmol/L Urea Nitrogen 16 7 - 25 mg/dL Calcium 8.9 8.6 - 10.3 mg/dL BUN/Creatinine Ratio 18 6 - 32 Lipid Panel (BFP) Status: Abnormal Result Value Ref Range Cholesterol 212 (A) 0 - 199 mg/dL Triglycerides 66 0 - 149 mg/dL HDL Cholesterol 75 40 - 150 mg/dL LDL-C 124 0 - 129 mg/dL Cholesterol/HDL Ratio 3 0 - 5 ASSESSMENT/PLAN: 1. Encounter for routine history and physical exam in female patient - VENOUS COLLECTION - Basic Metabolic Panel (BFP) - Lipid Panel (BFP) 2. ALONSO (generalized anxiety disorder) Controlled on medications, refilled. Recheck in 6 months. - sertraline (ZOLOFT) 25 MG tablet; Take 1 tablet (25 mg) by mouth daily. Dispense: 90 tablet; Refill: 1 3. Encounter for screening mammogram for breast cancer - MA Screening Bilateral w/ Jasvir - Radiology Referral (Affiliate Use Only) 4. Screening for colon cancer - Colonoscopy Screening Production Control Clerk Referral 5. Need for hepatitis C screening test - HEPATITIS C ANTIBODY ([facility]) 6. Intrinsic asthma No symptoms. Patient has been advised of split billing requirements and indicates understanding: Yes Counseling Reviewed preventive health counseling, as reflected in patient instructions Regular exercise Healthy diet/nutrition She reports that she has never smoked. She has never been exposed to tobacco smoke. She has never used smokeless tobacco. Signed Electronically by: Jenny Monroy MD documented in this encounter Nursing Notes * Mayra Story CMA - 05/20/2024 8:00 AM CDT Chief Complaint Patient presents with New Patient Re-establish, pap's done at [facility] Physical Fasting today, no concerns Recheck Medication Refill sertraline Pre-visit Screening: Immunizations: not up to date - tdap today Colonoscopy: is due and ordered today Mammogram: is due and ordered today Asthma Action Test/Plan: NA PHQ9: Done today GAD7: Done today Questioned patient about current smoking habits Pt. has never smoked. Ok to leave detailed message on voice mail for today's visit only Yes, phone # [phone] documented in this encounter Plan of Treatment Scheduled Orders Name Type Priority Associated Diagnoses Orde r Schedule MA Screening Bilateral w/ Jasvir Imaging Routine Encounter for screening mammogram for breast cancer Ordered: 05/20/2024 Scheduled Referrals Name Type Priority Associated Diagnoses Order Schedule Colonoscopy Screening Production Control Clerk Referral Referral Routine: Next available opening Screening for colon cancer Ordered: 05/20/2024 Radiology Referral (Affiliate Use Only) Referral Routine: Next available opening Encounter for screening mammogram for breast cancer Ordered: 05/20/2024 documented as of this encounter Procedures Procedure Name Priority Date/Time Associated Diagnosis Comments ASTHMA ACTION PLAN Routine 05/20/2024 12 :40 PM CDT Intrinsic asthma HEP C ANTISE Routine 05/20/2024 9:51 AM CDT Need for hepatitis C screening test DE COLLECTION VENOUS BLOOD VENIPUNCTURE Routine 05/20/2024 8:27 AM CDT Encounter for routine history and physical exam in female patient LIPID PANEL (BFP) Routine 05/20/2024 Encounter for routine history and physical exam in female patient BASIC METABOLIC PANEL (BFP) Routine 05/20/2024 Encounter for routine history and physical exam in female patient documented in this encounter Results * HEPATITIS C ANTIBODY ([facility]) (05/20/2024 9:51 AM CDT) HCV Antibody NON-REACTI VE NON-REACT TAZ [facility] Comment: HCV antibody was non-reactive. There is no laboratory evidence of HCV infection. In most cases, no further action is required. However, if recent HCV exposure is suspected, a test for HCV RNA (test code 34638) is suggested. For additional information please refer to http://education.[employer]/faq/DCB46t4 (This link is being provided for informational/ educational purposes only.) Blood 05/20/2024 9:51 AM CDT 05/21/2024 2:49 AM CDT Narrative Resulting Agency Comment Performing Organization Information: ? CB ? [facility] ? [address] [place] [address] ? Bautista Guerrero Jenny Monroy MD LAB - NON-BEAKER BLOOD LABS Final Result [facility] [address] [place], [place] [address] [phone] * (ABNORMAL) Lipid Panel (BFP) (05/20/2024) Cholesterol 212(A) 0 - 199 mg/dL [facility] Triglycerides 66 0 - 149 mg/dL [facility] HDL Cholesterol 75 40 - 150 mg/dL [facility] LDL-C 124 0 - 129 mg/dL [facility] Cholesterol/HDL Ratio 3 0 - 5 [facility] Blood 05/20/2024 us Jenny Monroy MD LAB - NON-BEAKER BLOOD LABS Final Result [facility] [address] [place] [id number] * Basic Metabolic Panel (BFP) (05/20/2024) [...] 6 - 32 [facility] Blood 05/20/2024 us Jenny Mornoy MD LAB - NON-BEAKER BLOOD LABS Final Result [facility] [address] [place] [address] documented in this encounter Visit Diagnoses Diagnosis Encounter for routine history and physical exam in female patient- Primary ALONSO (generalized anxiety disorder) Generalized anxiety disorder Encounter for screening mammogram for breast cancer Screening for colon cancer Special screening for malignant neoplasms, colon Need for hepatitis C screening test Special screening examination for other specified viral diseases Intrinsic asthma Intrinsic asthma, unspecified documented in this encounter Additional Health Concerns Assessment Noted Time PHQ-9 Depression Total Score: 1 05/20/20 24 9:02 AM CDT documented as of this encounter Care Teams Can Top Setter Relationship Specialty Start Date End Date Jenny Monroy MD [address] [place] [address] PCP - General Family Medicine 04/19/24 documented as of this encounter
--- OUTSIDE RECORDS SUMMARY | 2024-06-18 15:42 | XMS_ITS | Encounter Summary ---
Author Organization [facility] Address [address] [place] [address] Care Team Providers Care Sr Solutions Consultant Name Role Phone Antoinette Lorenzo MD Primary Care Provider Unav ailable Antoinette Lorenzo MD Unavailable UnavailGloria Villarreal MD Unavailable Nilsa Warner PA-C Primary Care Provid er Antoinette Lorenzo MD Unavailable UnavailGloria Villarreal MD Unavailable [phone] Gloria Villanueva MD Unavailable [phone] Jenny Monroy MD Primary Care Provider [phone] Jenny Monroy MD Unavailable [phone] Reason for Visit * Reason Onset Date Comments Ultrasound 01/31/2019 Encounter Details Date Type Department Care Team (Late st Contact Info) Description 01/31/2019 MyC Medical Advice [facility] [address] [place] [phone] Antoinette Lorenzo MD NO INFO AVAILABLE 03/02/23 Ultrasound Social History Tobacco Use Types Packs/Day Years Used Date Smoking Tobacco: Never Smokeless Tobacco: Never Alcohol Use Standard Drinks/Week Comments Yes 3 (1 standard drink = 0.6 oz pur e alcohol) Comments No Sex and Gender Information Value Date Recorded Sex Assigned at Not on file 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 Gender Identity Not on file Sexual Orientation Not on file documented as of this encounter Plan of Treatment Not on file documented as of this encounter Visit Diagnoses Not on filedocumented in this encounter Additional Health Concerns Assessment Noted Time PHQ-9 Depression Total Score: 0 11/08/19 19 9:13 AM CDT documented as of this encounter Care Teams Sr Solutions Consultant Relationship Specialty Start Date End Date Antoinette Lorenzo MD PCP - General 09/30/06 11/22/20 Nilsa Warner PA-C [address], [address] [address] PCP - General Family Medicine 11/23/20 04/18/24 Jenny Monroy MD [address] [place] [address] PCP - General Family Medicine 04/19/24 Antoinette Lorenzo MD NO INFO AVAILABLE 03/02/23 Assigned PCP 11/05/17 12/28/19 Gloria Villanueva MD [address], [address] [address] Assigned PCP 12/29/19 07/31/21 Antoinette Lorenzo MD NO INFO AVAILABLE 03/02/23 Assigned PCP 08/01/21 11/13/21 Gloria Villanueva MD [address], [address] [address] Assigned PCP 11/14/21 07/22/22 Gloria Villanueva MD [address], [address] [address] Assigned PCP 10/01/22 12/23/22 Jenny Monroy MD [address] [place] [address] Assigned PCP 05/29/24 documented as of this encounter
--- OUTSIDE RECORDS SUMMARY | 2024-06-18 15:42 | XMS_ITS | Encounter Summary ---
Author Organization [facility] Address [address] [place] [address] Care Team Providers Care Radiology Physician Name Role Phone Antoinette Lorenzo MD Primary Care Provider Unav ailable Antoinette Lorenzo MD Unavailable UnavailGloria Villarreal MD Unavailable [phone] Nilsa Warner PA-C Primary Care Provid er Antoinette Lorenzo MD Unavailable UnavailGloria Villarreal MD Unavailable [phone] Gloria Villanueva MD Unavailable [phone] Jenny Monroy MD Primary Care Provider Jenny Monroy MD Unavailable [phone] Reason for Visit * Reason Onset Date Comments Refill Request 12/09/2019 Encounter Details Date Type Department Care Team (Late st Contact Info) Description 12/09/2019 MyC Refill [facility] [address] [place] [phone] Antoinette Lorenzo MD NO INFO AVAILABLE 03/02/23 Refill Request Social History Tobacco Use Types Packs/Day Years Used Date Smoking Tobacco: Never Smokeless Tobacco: Never Alcohol Use Standard Drinks/Week Comments Yes 3 (1 standard drink = 0.6 oz pur e alcohol) Comments No Sex and Gender Information Value Date Recorded Sex Assigned at Not on file 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 Gender Identity Not on file Sexual Orientation Not on file documented as of this encounter Plan of Treatment Not on file documented as of this encounter Visit Diagnoses Diagnosis Anxiety state Anxiety state, unspecified documented in this encounter Additional Health Concerns Assessment Noted Time PHQ-9 Depression Total Score: 0 11/08/19 19 9:13 AM CDT documented as of this encounter Care Teams Radiology Physician Relationship Specialty Start Date End Date Antoinette Lorenzo MD PCP - General 09/30/06 11/22/20 Nilsa Warner PA-C [address], [address] [address] PCP - General Family Medicine 11/23/20 04/18/24 Jenny Monroy MD [address] [place] [address] PCP - General Family Medicine 04/19/24 Antoinette Lorenzo MD NO INFO AVAILABLE 03/02/23 Assigned PCP 11/05/17 12/28/19 Gloria Villanueva MD [address], [address] [address] Assigned PCP 12/29/19 07/31/21 Antoinette Lorenzo MD NO INFO AVAILABLE 03/02/23 Assigned PCP 08/01/21 11/13/21 Gloria Villanueva MD [address], [address] [address] Assigned PCP 11/14/21 07/22/22 Gloria Villanueva MD [address], [address] [address] Assigned PCP 10/01/22 12/23/22 Jenny Monroy MD [address] [place] [address] Assigned PCP 05/29/24 documented as of this encounter
--- OUTSIDE RECORDS SUMMARY | 2024-06-18 15:43 | XMS_ITS | Data Portability ---
Author Organization CORY Roldan CLINICAL INFORMATICS SPECIALIST, [id number] Address [address] [place] [address] Care Team Providers Care Beater Lead Name Role Phone [facility] Primary Care Provid er [...] fingerstick , blood 2020 021 ddavenpor t19 [id number] le_[place] , [address], [address], [place], [address], 10:54:42 unlisted lab - HPV high risk DNA with 16/18 genotyping 2020 021 [facility], [address], [place], [address], 16:32:21 pap, LB 2020 021 [facility], [address], [place], [address], 16:32:22 lipid panel, serum 2021 022 [facility], [address] [place], [address], 10:10:27 unlisted lab - glucose, fasting 2021 022 [place] [facility], [address] [place], [address], 10:10:27 lipid panel, serum [address] [facility], [address] [facility] [place], [address], [place], [address], 3 19:25:47 glucose, QN [mass/volum e], blood [address] [facility], [address] [facility] [address], [address], [place], [address], 3 19:25:47 Referral None recorded. Procedures None recorded. Surgeries None recorded. Imaging None recorded. Medication Orders sertraline 50 mg tablet 2020 021 [facility], [address] [place] [address], [address], 1 11:13:20 sertraline 50 mg tablet 2021 022 [facility], [address] [place], [address], 2 13:13:46 sertraline 25 mg tablet 2023 024 [facility][id number], [address] [place] [address], [address], 16:39:15 Patient TargetsNo targets recorded. Patient Instructions Encounter Date Encounter Id Patient Instructions Last Modified By Organization Details Last Modified Time 11/23/2020 [id number] - Encouraged breast self-awareness and monthly breast exams. - Recommend mammogram annually. - Encouraged regular exercise. - Calcium, vitamin D, and weight bearing exercise for bone health. - Recommend colonoscopy starting at age 45-50. - Non teachers' aide concerns managed by primary care physician - Reviewed current cervical cancer screening guidelines. - Discussed common perimenopausal changes - Counseled on alternative types of control - Pt will return to clinic for fasting labs- lipids, glucose - Return to clinic in 1 year for annual exam [email or web address] Not available 11/23/2020 13:57:50 12/03/2021 [id number] - Encouraged breast self-awareness and recommend yearly [...] provided including back up control and condoms. [email or web address] Not available 12/03/2021 13:16:00 12/30/2022 [id number] - Encouraged breast self-awareness and recommend yearly [...] Name Description Value Unit Range Abnormal Flag Note LastModifiedBy Organization Detail LastModifiedTime 11/23/2020 hemog lobin (Hb), finge rstic k, blood fingerstick hemoglobin 12.5 g/dL 12.0-1 5.0 Not Available [id number] le_[address], [place], [address], 11/23/2020 10:52:19 11/24/19 21 11/23/2020 HPV DNA, high- risk HPV high risk type 16 Negati ve for HPV type 16. negati ve for HPV type 16. Not Available [place] [address] [address], [address], 11/27/2020 16:32:21 11/24/19 21 11/23/2020 HPV DNA, high- risk HPV high risk type 18 Negati ve for HPV type 18. negati ve for HPV type 18. Not Available [place] [address], [place], [address], 11/27/2020 16:32:21 11/24/19 21 11/23/2020 HPV DNA, high- risk HPV other high risk types Negati ve for other high risk HPV types. negati ve for other high risk HPV types. HPV other high risk types inclu de 31, 33, 35, 39, 45, 51, 52, 56, 58, 59, 66, and 68. Not Available [place] [address] [address], [place], [address], 11/27/2020 16:32:21 11/24/19 21 11/23/2020 pap, LB case report See note CASE REPOR T ----- ----- ----- ----- ----- ----- ----- ----- Pap Smear Case: [id number] Autho stephane mix Provi marissa: Galen [place] MD Colle cted: 11/23 10:26 AM Order ing Locat ion: [facility]ne: 11/23 04:37 PM [facility] First Scree n: Sever son, Mita D Speci men: Cervi beryl Thin Prep with HPV Test Image r Scree yves, Cervi x ===== ===== ===== ==== = INTER PRETA TION: = ===== ===== ===== ==== Negat david for intra epith elial lesio n or edna sequeirat cells . Elect carlos fountain d by Maurilio erickMita Yomaira on 2020 at 3:31 PM SPECI MEN ADEQU ACY ----- ----- ----- ----- ----- ----- ----- ----- Satis facto ry for evalu ation . Endoc ervic al/tr ansfo rmati on zone compo nent prese nt. LMP ----- ----- ----- ----- ----- ----- ----- ----- NA PAP DISCL AIMER ----- ----- ----- ----- ----- ----- ----- ----- This speci men was scree michelet by the ThinP rep Imagi ng Syste m prior to denis cagle w by a cytot echno logis t and/o r patho logis t. The Pap test is a scree yves test and has an irred ucibl e false -nega tive rate. Routi ne perio dic testi ng and follo w-up of unexp luis d clini beryl signs and sympt oms are impor tant to minim ize the conse quenc e of false -nega tive Pap tests . Stephie olivo et al. 2012 Updat ed Conse nsus Guide lines for the Manag ement of Abnor mal Cervi beryl Demetrius r Scree yves Tests and Demetrius mcconnell Precu rsors . J Low Genit Tract Dis 2013; 17 (5): S2-S2 7 Not Available [facility] [address], [place], [address], 11/27/2020 16:32:22 12/04/1912/04/2021 LIPID PANEL W/ CHOL/ HDL RATIO cholesterol, total 216 mg/dL 100-19 9 above high normal Not Available [facility] ([facility]) [address] [place], [address], 12/04/2021 10:10:27 12/04/19 22 12/04/2021 LIPID PANEL W/ CHOL/ HDL RATIO triglyceride s 57 mg/dL 0-149 Not Available [facility] ([facility]) [address] [place], [address], 12/04/2021 10:10:27 12/04/19 22 12/04/2021 LIPID PANEL W/ CHOL/ HDL RATIO HDL cholesterol 68 mg/dL >39 Not Available [facility]) [address] [place], [address], 12/04/2021 10:10:27 12/04/19 22 12/04/2021 LIPID PANEL W/ CHOL/ HDL RATIO VLDL cholesterol beryl 10 mg/dL 5-40 Not Available [facility] ([facility]) [address] [place], [address], 12/04/2021 10:10:27 12/04/19 22 12/04/2021 LIPID PANEL W/ CHOL/ HDL RATIO LDL chol calc ([facility]) 138 mg/dL 0-99 above high normal Not Available [facility] ([facility]) [address] [place], [address], 12/04/2021 10:10:27 12/04/19 22 12/04/2021 LIPID PANEL W/ CHOL/ HDL RATIO comment: COMMUNICATIONS DEPARTMENT CHAIRPERSON Not Available [facility] ([facility]) [address] [place], [address], 12/04/2021 10:10:27 12/04/19 22 12/04/2021 LIPID PANEL W/ CHOL/ HDL RATIO T. chol/HDL ratio 3.2 ratio 0.0-4. 4 T. Chol/ HDL Ratio Men Women 1/2 Avg.R isk 3.4 3.3 Avg.R isk 5.0 4.4 2X Avg.R isk 9.6 7.1 3X Avg.R isk 23.4 11.0 Not Available [facility] ([facility]) [address] [facility], [place], [address], 12/04/2021 10:10:27 12/04/19 22 12/04/2021 GLUCO SE, FASTI NG glucose, fasting 169 mg/dL 65-99 above high normal Not Available [facility] ([facility]) [address] [place], [address], 12/04/2021 10:10:27 12/22/19 22 12/22/2021 HEMOG LOBIN A1C hemoglobin A1C 5.6 % 4.8-5. 6 Predi abete s: 5.7 - 6.4 Diabe brionna: >6.4 Glyce brenna contr ol for adult s with diabe brionna: <7.0 Not Available [facility] ([facility]) [address] [facility], [place], [address], 12/22/2021 08:16:04 12/31/19 23 12/30/2022 LIPID PANEL cholesterol 180 mg/dL <200 Not Available [address], [place], [address], 12/30/2022 19:25:47 12/31/19 23 12/30/2022 LIPID PANEL triglyceride s 45 mg/dL <150 Not Available [address], [place], [address], 12/30/2022 19:25:47 12/31/19 23 12/30/2022 LIPID PANEL direct measure HDL 68 mg/dL >=50 Not Available [address], [place], [address], 12/30/2022 19:25:47 12/31/19 12/30/2022 LIPID PANEL LDL cholesterol calculated 103 mg/dL <=100 high Not Available [facility] [address], [place], [address], 12/30/2022 19:25:47 12/31/19 23 12/30/2022 LIPID PANEL non HDL cholesterol 112 mg/dL <130 Vernell stero l Patsy able: <200 mg/dL Trigl yceri arun Nicole l: Less than 150 mg/dL Borde rline High: 150-1 99 mg/dL High: 200-4 99 mg/dL Very High: Great er than or equal to 500 mg/dL Direc t Measu re HDL Femal e: Great er than or equal to 50 mg/dL Male: Great er than or equal to 40 mg/dL LDL Vernell stero l Patsy able: <100m g/dL Above Patsy able: 100-1 29 mg/dL Borde rline High: 130-1 59 mg/dL High: 160-1 89 mg/dL Very High: >= 190 mg/dL Non HDL Vernell stero l Patsy able: 130 mg/dL Above Patsy able: 130-1 59 mg/dL Borde rline High: 160-1 89 mg/dL High: 190-2 19 mg/dL Very High: Great er than or equal to 220 mg/dL Not Available [address], [place], [address], 12/30/2022 19:25:47 12/31/1912/30/2022 GLUCO SE SERUM OR PLASM A glucose 83 mg/dL 70-99 Not Available [address], [place], [address], 12/30/2022 19:25:47 12/31/1912/30/2022 GLUCO SE SERUM OR PLASM A patient fasting > 8hrs? Yes Not Available [address], [place], [address], 12/30/2022 19:25:47 03/06/20 23 03/03/2023 MAMMO , scree yves, tomos ynthe sis, bilat eral No observ ation record ed. [email or web address] [facility] Fireworks Inspector [facility] [address], [place], [address], 03/06/2023 16:36:20 Result Notes None recorded. Problems Name Problem SNOMED Code Status Onset Date Resolution Date Notes Provider Name and Address Organization Details Recorded Time Anxiety 78102103 Active 021 [place] [address] [facility], [place], [address] , [facility] CLINICAL INFORMATICS SPECIALIST 11/16/2020 16:56:57 Problem Notes None recorded. Procedures Surgical History Date Name Laterality Status Provider Name and Address Organization Details Recorded Time 023 Date of Last Mammogram completed Dale Smith [facility] CLINICAL INFORMATICS SPECIALIST 03/06/2023 16:36:31 021 Date of Last Pap Smear completed Deshaun Urban [facility] CLINICAL INFORMATICS SPECIALIST 11/27/2020 17:16:55 operative procedure on knee completed Not Available [facility] 03/16/2020 01:04:59 excision of basal cell carcinoma completed Not Available [facility] 03/16/2020 01:04:59 tooth extraction completed Not Available [facility] 03/16/2020 01:04:59 operative procedure on [place] [address] [employer] [facility],[address], [place], [address], [facility] CLINICAL INFORMATICS SPECIALIST 11/16/2020 17:00:54 colposcopy of cervix completed Not Available [facility] 03/16/2020 01:05:00 arthroscopically aided anterior cruciate ligament reconstruction completed Not Available [facility] 03/16/2020 01:05:00 Imaging Results Imaging Date Name Status LastModified by Organiz ation Details LastModified Time 03/03/2023 MAMMO, screening, tomosynthesis, bilateral completed [email or web address] [facility] Fireworks Inspector [facility] [address], [place], [address], 03/06/2023 16:36:20 Procedure Notes None recorded. Medical Equipment None Reported. Allergies Allergen ID Allergen Name Allergen Category Reaction Reaction Severity Criticality Documentation Date Start Date Code Code System Note Provider Name and Address Organization Details Recorded Time 275703 Latex Exam Gloves medicatio n Not available Not available Not available 03/13/2020 *Note : hives Not Available [facility] 0 16:56:20 700353 cefazolin sodium medicatio n Not available Not available Not available 03/13/202048455 1 RxNorm *Onse t: 7 *Note : 06/14 - hives Not Available [facility] 0 16:56:20 Medications Name Sig Start Date [...] Updated DateTime 12/03/2021 167.64 cm 25.3 kg/m2 21650.57 g 118 mm[Hg] 74 mm[Hg] Anamika RAY Andreasier CLINICAL INFORMATICS SPECIALIST 2 10:39:56 Date Recorded Body height Body mass index (BMI) Body weight Systolic blood pressure Diastolic blood pressure Provider Name and Address Organization Details Last Updated DateTime 12/30/2022 167.64 cm 25.5 kg/m2 58731.31 g 118 mm[Hg] 76 mm[Hg] Anamika RAY - [facility] CLINICAL INFORMATICS SPECIALIST 3 10:34:33 Date Recorded Body height Body mass index (BMI) Body weight Systolic blood pressure Diastolic blood pressure Provider Name and Address Organization Details Last Updated DateTime 11/23/2020 167.64 cm 26.6 kg/m2 23039.3 g 116 mm[Hg] 72 mm[Hg] Eugenio Navarro (TERMED) [facility] - CLINICAL INFORMATICS SPECIALIST 10:52:16 Social History Question Answer Notes LastModified by Organizat ion Details LastModified Time Tobacco Smoking Status Never Smoker Anamika salesCORY CLINICAL INFORMATICS SPECIALIST 12/03/2021 08:01:51 Do You Have An Advance [...] 12/30/2022 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 Information not available 12/03/2021 Do You Use Any Illicit Or Recreational Drugs? No Information not available 12/03/2021 Sex: Unknown Functional Status Question Answer Note LastModified by Organizat ion Details LastModified Time What is your exercise level? Moderate Moderate Amount of Exercise (1-3 times weekly) *Note: walk Information not available 03/16/2020 Mental Status None recorded. Family History Relationship Description Onset Age of this Age Resolved Age Notes LastModified by Organization Details LastModified Time Father Carcinoma in situ of skin Skin Carcin curtis In Situ: basil cell carcin curtis Not available 12/30/2022 10:30:51 Paternal Grandfather Carcinoma in situ of skin Skin Carcin curtis In Situ: basil cell carcin curtis Not available 12/30/2022 10:30:51 Paternal Grandfather Family history of stroke 70 Stroke Not available 2022 10:30:51 Maternal Grandfather Disorder of cardiovascul ar system 40 Cardio vascul ar Diseas e Not available 12/30/2022 10:30:51 Maternal Grandfather Congestive heart failure 93 Not available 2022 10:30:51 Maternal Grandmother Family history of mental disorder Carola paul Not available 12/30/2022 10:30:51 Maternal Aunt Malignant tumor of breast 55 Not available 2022 10:30:51 Notes:03/16/2020: *Relative: Aunt *Problem: Cancer Breast Medical History Condition Response Psych- Anxiety Disorder Y Ortho-Other Y Ortho-Fractures Y Dermatology-Other Y ENT-Other Y Gynecological History Statement/Question Response History of [...] Recorded Time Tdap 03/21/2012 completed Not Available [facility] 01:06:35 Influenza, split virus, trivalent, preservative 08/16/2011 completed Not Available [facility] 03/16/2020 01:06:35 Influenza, split virus, trivalent, preservative 2013 completed Not Available [facility] 03/16/2020 01:06:36 Influenza, split virus, trivalent, preservative 05/30/2014 completed Not Available [facility] 03/16/2020 01:06:36 Past Encounters Encounter ID Performer Location Encounter Start Date Encounter Closed Date Diagnosis/Indication Diagnosis SNOMED-CT Code Diagnosis ICD10 Code [id number] COLIN MCINTYRE MD [id number] [place] [address] 11/23/2020 10:42:32 11/23/2020 11:28:28 Gynecologic examination 78545760 Z01.419 Anxiety 37231915 F41.9 [facility] 921168121 Z30.9 [id number] ANAND JONES MD [id number] THD[place]_BU [address] [facility] ,[address] [place] [address] 12/03/2021 10:23:11 12/03/2021 13:42:50 Hyperlipidemia screening 648861176 Z13.220 Diabetes m ellitus screening 317616229 Z13.1 Gynecologi c examination 12744555 Z01.419 Anxiety 06556910 F41.9 [id number] ANAND JONES MD [id number] THDALE_[address] ,[address] [place] [address] 12/30/2022 10:22:29 12/30/2022 11:53:08 Gynecologic examination 73370284 Z01.419 Hyperlipid emia screening 671375631 Z13.220 Diabetes m ellitus screening 684063125 Z13.1 [id number] JEANNETTE CORDERO CNM [id number] THD[place]_ED [address] [address] 10/03/2023 15:51:51 10/03/2023 16:38:23 Generalized anxiety disorder 06924109 F41.1 Health Concerns Section Related Observation LastModified by Organization Detai ls LastModified Time None Recorded Concern Status LastModified by Organization Details LastModified Time None Recorded Advance Directives Directive N: Payers Encounter Date Sequence Insurance Name Policy Number Policy Britton Covered Member ID Britton Member ID Guarantor Name 11/23/2020 1 [place] [id number] Sade Zhou [id number] Sade Zhou 12/03/2021 1 [place] [id number] Sade Zhou [id number] Sade Zhou 12/30/2022 1 [facility] [id number] Sade Zhou [id number] Sade Zhou 10/03/2023 1 [employer] - OPEN ACCESS PLUS [id number] Sade Zhou [id number] Sade Zhou Notes Date Note Type Note Provider Name and Address Organization Details Recorded Time 11/23/2020 text/html HPI Notes: Kyree collins Premenopausal ([facility]) Reported by patient. Patient Relationship [...] [place] [address] [facility],[address], [place], [address], [place] - [facility] CLINICAL INFORMATICS SPECIALIST 11/23/2020 13:58:08 12/03/2021 text/html HPI Notes: Kyree collins Premenopausal (Premier) Reported by patient. Patient Relationship [...] [place] [id number] [address] [facility],[address], [place], [address], [facility] CLINICAL INFORMATICS SPECIALIST 12/03/2021 13:16:19 12/30/2022 text/html HPI Notes: Kyree collins Premenopausal (Premier) Reported by patient. Patient Relationship [...] Does [place] [address] [address] [facility],[address], [place], [address], [facility] CLINICAL INFORMATICS SPECIALIST 12/30/2022 11:42:23 10/03/2023 text/html HPI Notes: Sade [...] to mood symptoms/anxiety. Denies suicidal ideation. JEANNETTE CORDERO CNM [id number] [address], [place], [address], [facility] CLINICAL INFORMATICS SPECIALIST 10/03/2023 16:12:50 OBGyn Episode Ob Episode Information Episode Created Date Number of Fetuses Patient Bloodtype Patient rh Status Prepregnancy Weight lbs Domestic Partner Domestic Partner Phone Father Name Cartography/Mapping Technician Status 11/17/19 21 1 CLOSED Fetus Data First Name Last Name Admitted to NICU Weight (g) Sex Living Outcome Pediatric Complications Fetus ID Race Codes Race Delivery Type 3118.44 5 M Full Term [id number] Vaginal Vacuum Assisted Maldonado Calculation Initial Maldonado [...]
--- NOTE | 2024-06-18 16:00 | CRLHL7_ITS ---
For Patients: As a result of the Century Cures Act, medical imaging exams and procedure reports are released immediately into your electronic medical record. You may view this report before your referring provider. If you have questions, please contact your health care provider. BILATERAL SCREENING MAMMOGRAM WITH COMPUTER-AIDED DETECTION AND TOMOSYNTHESIS TECHNIQUE: CC and MLO views were obtained. These mammographic images have been obtained using full-field digital technique. These mammographic images were interpreted with the benefit of computer-aided detection. Breast Tomosynthesis was used in this interpretation. COMPARISON FILM: 03/03/23, 01/07/22, 12/02/20. FINDINGS: The breasts are heterogeneously dense, which may obscure small masses. IMPRESSION: There is no radiographic evidence for malignancy. ASSESSMENT: BI-RADS Category 1: Negative RECOMMENDATION: Routine screening mammogram in 1 year. A lay language report of this examination will be provided to the patient. Zion Win M.D. Diagnostic Radiologist [email or web address] SP/Dictated by: Zion Win MD @ 06/19/2024 10:13:00 AM (Electronically Signed)
== END 2024-06-18 15:40 | disposition home or self-care (01) ==
LOC: MAMMO 15:40
PROVIDERS: Visit Provider Family Medicine
DX: Z12.31 Encounter for screening mammogram for malignant neoplasm of breast (principal); R92.333 Mammographic heterogeneous density, bilateral breasts
CPT/HCPCS: 77063; 77067